=== PATIENT | male | born 1950 | race American Indian/Alaskan Native ===

== ENCOUNTER 2017-02-03 00:13 | Emergency (ER) | payer MEDICARE ==
[2017-02-03 00:56] LABS: Basophils % (Auto) 0.3 % (0.0-1.8); Eosinophils % (Auto) 0.3 % (0.0-4.3); Hematocrit 37.6 % (35.5-45.6); Hemoglobin 12.4 gm/dl (11.8-15.2); Mean Corpuscular HGB Conc 33 % (32-34); Mean Corpuscular Hemoglobin 33 pg (28-32); Mean Corpuscular Volume 99 fl (84-94); Platelet Count 282 K/mm3 (140-440); Red Blood Count 3.81 M/mm3 (3.65-5.03); White Blood Count 7.2 K/mm3 (4.5-11.0)
[2017-02-03 01:36] LABS: Anion Gap 22 mmol/L; BUN/Creatinine Ratio 11.66; Blood Urea Nitrogen 14 mg/dL (9-20); Calcium 9.4 mg/dL (8.4-10.2); Carbon Dioxide 21 mmol/L (22-30); Chloride 103.4 mmol/L (98-107); Glucose 105 mg/dL (75-100); Potassium 4.3 mmol/L (3.6-5.0); Sodium 142 mmol/L (137-145)
--- NOTE | 2017-02-03 06:20 | Emergency Department Report ---
ED Psych HPI - General Chief Complaint: Psych Stated Complaint: COCAINE ABUSE/DEPRESSED Time Seen by Provider: 02/03/17 05:44 Source: patient, EMS Mode of arrival: Ambulatory - History of Present Illness Initial Comments: Patient is a 66-year-old male he has a past medical history of cocaine abuse who presents with cocaine relapse and depression. Patient states that he took cocaine about 36 hours ago. He is feeling depressed and wants to get help for his addiction. He denies having any suicidal or homicidal ideation. He also states that he does not hear any voices. Patient currently is not in any pain he also states that he has no nausea, vomiting fevers or chills. Patient also has no chest pain. His cocaine cravings R severe he states nothing makes it better or worse. - Related Data Allergies Allergy/AdvReac Type Severity Reaction Status Date / Time No Known Allergies Allergy Verified 11/06/14 11:19 ED Review of Systems ROS: Stated complaint: COCAINE ABUSE/DEPRESSED Other details as noted in HPI Constitutional: denies: chills, fever Eyes: denies: eye pain, eye discharge, vision change ENT: denies: ear pain, throat pain Respiratory: denies: cough, shortness of breath, wheezing Cardiovascular: denies: chest pain, palpitations Endocrine: no symptoms reported Gastrointestinal: denies: abdominal pain, nausea, diarrhea Genitourinary: denies: urgency, dysuria Musculoskeletal: denies: back pain, joint swelling, arthralgia Skin: denies: rash, lesions Neurological: denies: headache, weakness, paresthesias Psychiatric: as per HPI, anxiety. denies: depression, homicidal thoughts, suicidal thoughts Hematological/Lymphatic: denies: easy bleeding, easy bruising ED Past Medical Hx - Past Medical History Hx Deep Vein Thrombosis: Yes (Left leg) Hx Psychiatric Treatment: Yes (Bi-polar) Additional medical history: Chronic left upper extremity pain - Surgical History Additional Surgical History: cyst from scrotum removed 1998. Left shoulder orthoscopy - Social History Smoking Status: Current Some Day Smoker Substance Use Type: Alcohol, Cocaine ED Physical Exam - General Limitations: No Limitations General appearance: alert, in no apparent distress - Head Head exam: Present: atraumatic, normocephalic - Eye Eye exam: Present: normal appearance - ENT ENT exam: Present: mucous membranes moist - Neck Neck exam: Present: normal inspection - Respiratory Respiratory exam: Present: normal lung sounds bilaterally. Absent: respiratory distress - Cardiovascular Cardiovascular Exam: Present: regular rate, normal rhythm. Absent: systolic murmur, diastolic murmur, rubs, gallop - GI/Abdominal GI/Abdominal exam: Present: soft, normal bowel sounds - Rectal Rectal exam: Present: deferred - Extremities Exam Extremities exam: Present: normal inspection - Back Exam Back exam: Present: normal inspection - Neurological Exam Neurological exam: Present: alert, oriented X3 - Psychiatric Psychiatric exam: Present: depressed - Skin Skin exam: Present: warm, dry, intact, normal color. Absent: rash ED Course Vital Signs 02/03/17 02/03/17 02/03/17 00:24 06:21 06:22 Temperature 98.9 F Pulse Rate 90 81 Respiratory 16 16 Rate Blood Pressure 130/84 Blood Pressure 135/64 [Left] O2 Sat by Pulse 95 99 99 Oximetry 02/03/17 02/03/17 02/03/17 08:00 08:01 08:24 Temperature 98.1 F 98.3 F Pulse Rate 70 75 Respiratory 16 16 16 Rate Blood Pressure Blood Pressure 145/71 132/81 [Left] O2 Sat by Pulse 97 97 98 Oximetry - Reevaluation(s) Reevaluation #1: 02/03/17 06:25 I evaluated patient I will have the mental health worker evaluate the patient to see if he is cleared to go to an outpatient rehabilitation center. Patient' s laboratory findings are within the normal limits. Reevaluation #2: 02/03/17 12:30 Patient has been evaluated by mental health worker he can go to outpatient rehabilitation. ED Medical Decision Making - Lab Data Result diagrams: 02/03/17 00:39 02/03/17 00:39 Lab Results 02/03/17 02/03/17 02/03/17 Range/Units 00:39 00:39 00:39 WBC 7.2 (4.5-11.0) K/mm3 RBC 3.81 (3.65-5.03) M/mm3 Hgb 12.4 (11.8-15.2) gm/dl Hct 37.6 (35.5-45.6) % MCV 99 H (84-94) fl MCH 33 H (28-32) pg MCHC 33 (32-34) % RDW 13.0 L (13.2-15.2) % Plt Count 282 (140-440) K/mm3 Lymph % (Auto) 31.5 (13.4-35.0) % [place] % (Auto) 6.9 (0.0-7.3) % Eos % (Auto) 0.3 (0.0-4.3) % Baso % (Auto) 0.3 (0.0-1.8) % Lymph # 2.3 (1.2-5.4) K/mm3 [place] # 0.5 (0.0-0.8) K/mm3 Eos # 0.0 (0.0-0.4) K/mm3 Baso # 0.0 (0.0-0.1) K/mm3 Seg Neutrophils % 61.0 (40.0-70.0) % Seg Neutrophils # 4.4 (1.8-7.7) K/mm3 Sodium 142 (137-145) mmol/L Potassium 4.3 (3.6-5.0) mmol/L Chloride 103.4 (98-107) mmol/L Carbon Dioxide 21 L (22-30) mmol/L Anion Gap 22 mmol/L BUN 14 (9-20) mg/dL Creatinine 1.2 (0.8-1.5) mg/dL Estimated GFR > 60 ml/min BUN/Creatinine Ratio 11.66 % Glucose 105 H (75-100) mg/dL Calcium 9.4 (8.4-10.2) mg/dL Plasma/Serum Alcohol < 0.01 (0-0.07) gm% - Medical Decision Making Chief medical diagnosis: Cocaine withdrawal Differential local diagnoses: Substance induced mood disorder, metabolic abnormality Will get CBC, CMP, drug urine screen and I will have patient be evaluated by mental health worker. Critical care attestation.: If time is entered above; I have spent that time in minutes in the direct care of this critically ill patient, excluding procedure time. ED Disposition Clinical Impression: Cocaine abuse Depression Qualifiers: Depression Type: unspecified Qualified Code(s): F32.9 - Major depressive disorder, single episode, unspecified Disposition: [id number] Is pt being admited?: No Does the pt Need Aspirin: No Condition: Stable Referrals: PRIMARY CARE, [Primary Care Provider] - 3-5 Days Time of Disposition: 12:30
[2017-02-03 06:30] LABS: Urine Drugs of Abuse Note Disclamer
[2017-02-03 06:44] LABS: Bilirubin,Urine NEG (Negative); Blood,Urine NEG (Negative); Ketones,Urine NEG (Negative); Leukocyte Esterase,Urine NEG (Negative); Mucus,Urine FEW /HPF; Nitrite,Urine NEG (Negative); Protein,Urine <15 mg/dL mg/dL (Negative); Urobilinogen,Urine < 2.0 mg/dL (<2.0)
[2017-02-03 08:24] VITALS: BP 132/81
--- NOTE | 2017-02-03 10:31 | Consultation ---
History of Present Illness - Reason for Consult Consult date: 02/03/17 Reason for consult: Mental Health Evaluation Requesting physician: LAURITA SCHWARTZ - Chief Complaint Chief complaint: "I need help" - History of Present Psychiatric Illness Patient is a 66-year-old male he has a past medical history of cocaine abuse who presents with cocaine relapse and depression. Today patient is calm and cooperative during the assessment. He stated that he need help for his substance abuse (cocaine). He stated using cocaine for the past 17 years. He stated attending the [facility] a couple years ago. He stated that he was "clean" from cocaine for 30 days and relapsed 2 days ago. He denies any triggers or stressors to why he use cocaine. He denies SI/HI's, AVH's and depression symptoms. He denies excessive alcohol consumption (etoh). Medications and Allergies Allergies Allergy/AdvReac Type Severity Reaction Status Date / Time No Known Allergies Allergy Verified 11/06/14 11:19 Past psychiatric history - Past Medical History Past Medical History: DVT Past Surgical History: No surgical history - past Psychiatric treatment and history psychiatric treatment history: One inpatient setting for substance abuse. Denies a fam psy hx. - Social History Social history: lives with family (Retired) Mental Status Exam - Vital signs Last Vital Signs Temp 98.3 F 02/03/17 08:24 Pulse 75 02/03/17 08:24 Resp 16 02/03/17 08:24 BP 132/81 02/03/17 08:24 Pulse Ox 98 02/03/17 08:24 - Exam Narrative exam: ROS: (-) depression MSE: Appearance: calm, cooperative Behavior: regular eye contact Speech: regular rate and tone Mood: "okay" Affect: congruent to mood Thought Process: linear Thought Content: denies HI/SI's and AVH's Motor Activity: sitting up in the bed Cognition: A/Ox 3 Insight: linear Judgment: linear Results Result Diagrams: 02/03/17 00:39 02/03/17 00:39 Abnormal lab results 02/03/17 02/03/17 Range/Units 00:39 00:39 MCV 99 H (84-94) fl MCH 33 H (28-32) pg RDW 13.0 L (13.2-15.2) % Carbon Dioxide 21 L (22-30) mmol/L Glucose 105 H (75-100) mg/dL All other labs normal. Assessment and Plan Assessment and plan: Impression: Substance Use DO (cocaine). Today patient is calm and cooperative during the assessment. Positive for cocaine. DDx: R/O Mood DO Recommendation/Plan: Patient will volunteer for [facility] once discharged.
== END 2017-02-03 12:45 ==
LOC: ED 00:13
DX: F32.9 Major depressive disorder, single episode, unspecified (principal); F14.10 Cocaine abuse, uncomplicated
CPT/HCPCS: 36415; 80048; 80307; 81001; 85025; 99284; G0480; 80320